=== PATIENT | female | born 1985 | race American Indian/Alaskan Native ===

== ENCOUNTER 2021-06-14 10:58 | Day surgery (SDC) | payer OTHER ==
--- NOTE | 2021-06-14 08:14 | Short Stay Summary ---
Short Stay Documentation Date of service: 06/14/21 Narrative H&P: 36y/o with findings of a retained IUD. An attempt was made to remove the device in the office without success. Ultrasound verifies the IUD is intrauterine. - History Principal diagnosis: Retained IUD Past Medical History: No medical history Past Surgical History: No surgical history Social history: single - Allergies and Medications Current Medications: Allergies No Known Allergies Allergy (Unverified 06/09/21 15:30) Home Medications Medication Instructions Recorded Confirmed Last Taken Type No Known Home Medications [No 06/09/21 06/09/21 Unknown History Reported Home Medications] - Physical exam General appearance: no acute distress Integumentary: no rash Lungs: Clear to auscultation Breasts: deferred Heart: Regular rate Gastrointestinal: normal Female Genitourinary: deferred - Brief post op/procedure progress note Date of procedure: 06/14/21 Pre-op diagnosis: Retained IUD Post-op diagnosis: same Procedure: Hysteroscopy Removal of IUD Anesthesia: MAC Surgeon: SHERRY SIFUENTES Estimated blood loss: none Pathology: list (Mirena IUD) Specimen disposition: to lab Condition: stable - Hospital course Hospital course: Patient was taken to the operating room and underwent a hysteroscopic removal of her IUD. Please see operative note for details of surgery. Her postoperative course was uneventful. - Disposition Condition at discharge: Good Disposition: 01 HOME / SELF CARE / HOMELESS Short Stay Discharge Plan Activity: no restrictions Diet: regular Additional Instructions: Follow-up is not required Follow-up as needed
[~2021-06-14 10:58] MED LIST: GLUCAGON (HUMAN RECOMBINANT) 1 MG/ML INJ ONE; SODIUM CHLORIDE 0.9% 100 ML ONE; SODIUM CHLORIDE 0.9% 1000 ML 1,000 ML ONE
[2021-06-14] MEDS ORDERED: LACTATED RINGERS 1,000 ML IV SCH (12:00)
[2021-06-14] MEDS ORDERED: HYDROmorphone 1 MG/1 ML INJ IV PRN ×2 (12:56)
[2021-06-14] MEDS ORDERED: ONDANSETRON 4 MG/2 ML INJ IV PRN (12:56)
--- NOTE | 2021-06-14 12:57 | Anesthesia Day of Surgery ---
Anesthesia Day of Surgery - Day of Surgery Patient Examined: Yes Patient H&P Reviewed: Yes Patient is NPO: Yes
[2021-06-14] MEDS ORDERED: MIDAZOLAM 2 MG/2 ML INJ IV NR (13:00)
--- NOTE | 2021-06-14 13:01 | Anesthesia Consultation ---
Anesthesia Consult and Med Hx Date of service: 06/14/21 - Airway Anesthetic Teeth Evaluation: Good ROM Head & Neck: Adequate Mental/Hyoid Distance: Adequate Mallampati Class: Class I Intubation Access Assessment: Good - Pre-Operative Health Status ASA Pre-Surgery Classification: ASA1 Proposed Anesthetic Plan: General - Pulmonary Hx Smoking: Yes (Former) Hx Sleep Apnea: No - Central Nervous System Hx Psychiatric Problems: No - Gastrointestinal Hx Gastroesophageal Reflux Disease: No - Hematic Hx Sickle Cell Disease: No - Other Systems Hx Alcohol Use: Yes (Occas) Hx Cancer: No
[2021-06-14] MEDS ORDERED: fentaNYL 100 MCG/2 ML INJ ONE (16:18)
[2021-06-14] MEDS ORDERED: LIDOCAINE MPF (2%) 20 MG/1 ML VIAL 5 ML ONE (16:18)
[2021-06-14] MEDS ORDERED: propofoL 200 MG/20 ML VIAL IV ONE (16:19)
[2021-06-14] MEDS ORDERED: ONDANSETRON 4 MG/2 ML INJ ONE (16:46)
--- NOTE | 2021-06-14 16:49 | Operative Report ---
Operative Report Operative Report: Date of procedure: June 14, 2021 Pre-operative diagnosis: Retained IUD Post-operative diagnosis: Same as above Procedure name(s): Hysteroscopy; removal of IUD Surgeon: Sybil Ly M.D. Family Development Specialist: None Anesthesia: MAC Findings intrauterine device Indication: 36-year-old -0-1-1 with history of a retained IUD that the strings could not be visualized on speculum exam. Procedure The patient was taken to the operating room and given general tracheal anesthesia without complication. The patient was prepped and draped in a normal sterile fashion. A bivalve speculum was placed in the patient's vagina single- tooth tenaculums placed on the anterior lip of the cervix. The cervical os was dilated with graduated dilators. A uterine sound was inserted. The hysteroscope was then placed. Insufflation of the uterine cavity was performed with normal saline. Gen. survey of the uterine cavity revealed IUD string in the cervix. A grasper was placed through the hysteroscope. The IUD was removed without difficulty. The hysteroscope was then removed. The remainder of the vaginal instruments were then removed atraumatically. The patient was then successfully extubated taken to the recovery room. All sponge laps and needle counts were correct 2.
[2021-06-14] MEDS ORDERED: SODIUM CHLORIDE 0.9% IRRIG SOLN 2000 ML IR ONE (16:52)
--- NOTE | 2021-06-14 17:39 | Post Anesthesia Evaluation ---
- Post Anesthesia Evaluation Patient Participated: Yes Airway Patent: Yes Stable Respiratory Function: Yes Nausea/Vomiting: No Temp > 96.8F: Yes Pain Manageable: Yes Adequeate Hydration: Yes Anesthesia Complications: No Block Receding Appropriately: Not Applicable Patient on Ventilator: No
[2021-06-14 18:14] VITALS: BP 118/72
== END 2021-06-14 17:58 | disposition home or self-care (01) ==
LOC: OR 10:58
PROVIDERS: ATTEND Obstetrics & Gynecology
DX: Z30.432 Encounter for removal of intrauterine contraceptive device (principal); T83.89XA Other specified complication of genitourinary prosthetic devices, implants and grafts, initial encounter; Z20.822 Contact with and (suspected) exposure to COVID-19; Z87.891 Personal history of nicotine dependence; Z72.89 Other problems related to lifestyle; Z98.890 Other specified postprocedural states; Y92.89 Other specified places as the place of occurrence of the external cause; Y82.8 Other medical devices associated with adverse incidents
CPT/HCPCS: 58562; 81025; 88300; J1610; J2250; J2405; J2704; J3010; J3490; J7030; J7120; U0003; 88302; Q0162